=== PATIENT | male | born 1955 | race Caucasian/White ===

== ENCOUNTER 2024-12-15 11:23 | Inpatient (IN) | payer MEDICARE, OTHER ==
[~2024-12-15] VITALS: Ht 182.9 cm; Wt 64.4 kg
[2024-12-15 12:32] LABS: APPEARANCE,URINE CLEAR (CLEAR); BLOOD, URINE NEGATIVE Ery/uL (NEGATIVE); LEUKOCYTE ESTERASE ,URINE NEGATIVE (NEGATIVE); NITRITE, URINE NEGATIVE (NEGATIVE); UGLUCOSE NEGATIVE (NEGATIVE)
[2024-12-15 12:37] LABS: AMPHETAMINE, URINE NEGATIVE (NEGATIVE); BARBITURATE, URINE NEGATIVE (NEGATIVE); BENZODIAZEPINE, URINE NEGATIVE (NEGATIVE); CANNABINOID, URINE NEGATIVE (NEGATIVE); COCCAINE, URINE NEGATIVE (NEGATIVE); OPIATE, URINE NEGATIVE (NEGATIVE)
[2024-12-15 12:37] LABS: CALCIUM, SERUM 9.4 mg/dL (8.5-10.1); CREATININE 0.6 mg/dL (0.6-1.3); SODIUM SERUM 140 mmol/L (136-145); UREA NITROGEN, BLOOD 21 mg/dL (7-18)
[2024-12-15 12:43] LABS: PLATELET COUNT (AUTO) 410 K/uL (150-450); RED BLOOD CELL COUNT(AUTO) 4.74 MIL/uL (4.5-6.0); RED CELL DISTRIBUTION WIDTH 15.8 % (11.5-15.0); WHITE BLOOD COUNT (AUTO) 8.3 K/uL (4.3-11.0)
[2024-12-15 12:45] LABS: ALCOHOL, BLOOD < 3 mg/dL (0-10); ASPARTATE AMINOTRANSFERASE 18 U/L (15-37); TOTAL PROTEIN, SERUM 8.5 g/dL (6.4-8.2)
[2024-12-15 12:49] LABS: ADD URINE CULTURE NO; SQUAMOUS EPITHELIAL CELL,UR Rare /HPF (None Seen)
[2024-12-15] MEDS ORDERED: OLAN10TA3 PO (13:14)
[2024-12-15] MEDS ORDERED: OLAN15TA3 PO (13:14)
[2024-12-15] MEDS ORDERED: GABA300C PO (13:14)
[2024-12-15] MEDS ORDERED: MELO15TA13 PO (13:14)
[2024-12-15] MEDS ORDERED: ROSU10TA2 PO (13:14)
[2024-12-15] MEDS ORDERED: DICL100G26 TP (13:14)
[2024-12-15] MEDS ORDERED: LIDO30AD10 TP (13:14)
[2024-12-15] MEDS ORDERED: LOSA25TA27 PO (13:14)
[2024-12-15 15:15] VITALS: O2SAT 96
[2024-12-15] MEDS ORDERED: ZOLPIDEM TARTRATE 5 MG TABLET PO PRN ×2 (17:00)
[2024-12-15] MEDS ORDERED: MAG HYDROX/AL HYDROX/SIMETH 30 ML UDC PO PRN (17:00)
[2024-12-15] MEDS ORDERED: ACETAMINOPHEN 325 MG TABLET PO PRN (17:00)
[2024-12-15] MEDS ORDERED: MAGNESIUM HYDROXIDE 30 ML UDC PO PRN (17:00)
[2024-12-15] MEDS ORDERED: LORAZEPAM 1 MG TABLET PO PRN (17:00)
[2024-12-15] MEDS ORDERED: LORAZEPAM 0.5 MG TABLET PO PRN (17:00)
[2024-12-15] MEDS: BLOOD SUGAR DIAGNOSTIC 1 EACH STRIP IN ONE (17:50)
[2024-12-15 19:51] VITALS: BP 98/61; TEMP 97.9; O2SAT 95
[2024-12-16] MEDS: GABAPENTIN 300 MG CAPSULE PO SCH (12:25)
[2024-12-16] MEDS: OLANZAPINE 5 MG TABLET PO SCH (16:15)
[2024-12-16] MEDS: ATORVASTATIN 40 MG TABLET PO SCH (21:24)
[2024-12-17] MEDS: LOSARTAN POTASSIUM 25 MG TABLET PO SCH (09:00)
[2024-12-17] MEDS: LIDOCAINE 5% (PATCH) 1 EA PATCH TP SCH (09:00)
[2024-12-17] MEDS: DULOXETINE HCL 30 MG CAPSULE.DR PO SCH (09:00)
[2024-12-18] MEDS: DULOXETINE HCL 30 MG CAPSULE.DR PO ONE (11:13)
[2024-12-18] MEDS: OLANZAPINE 5 MG TABLET PO ONE (11:13)
[2024-12-19 08:53] VITALS: BP 101/73
[2024-12-19 22:18] VITALS: BP 123/74; TEMP 98; O2SAT 98
[2024-12-19 22:20] VITALS: BP 123/74; TEMP 98
[2024-12-20 23:00] VITALS: BP 120/70; TEMP 98.2; O2SAT 98
[2024-12-23] MEDS: RISPERIDONE 1 MG TAB.RAPDIS PO SCH (16:23)
[2024-12-23] MEDS: OLANZAPINE 10 MG VIAL IM PRN (16:48)
[2024-12-24] MEDS: ENSURE ENLIVE 237 ML LIQUID (VANILLA) PO SCH (08:36)
[2024-12-25] MEDS: OLANZAPINE 10 MG VIAL IM PRN (10:07)
[2024-12-25] MEDS: RISPERIDONE 1 MG TAB.RAPDIS PO SCH (12:22)
[2024-12-25 22:56] VITALS: BP 119/68; TEMP 98.2
[2024-12-27 16:00] VITALS: BP 107/89; TEMP 98.4; O2SAT 94
[2024-12-27 20:45] VITALS: BP 110/75; TEMP 98; O2SAT 98
[2024-12-29] MEDS: PALIPERIDONE PALMITATE 234 MG/1.5 ML SYRINGE IM ONE (10:33)
[2024-12-29 16:00] VITALS: BP 102/68; TEMP 98.1; O2SAT 100
[2024-12-29 16:05] LABS: PLATELET COUNT (AUTO) 359 K/uL (150-450); RED BLOOD CELL COUNT(AUTO) 4.17 MIL/uL (4.5-6.0); RED CELL DISTRIBUTION WIDTH 15.7 % (11.5-15.0); WHITE BLOOD COUNT (AUTO) 5.8 K/uL (4.3-11.0)
[2024-12-29 16:33] LABS: CALCIUM, SERUM 9.0 mg/dL (8.5-10.1); CREATININE 0.7 mg/dL (0.6-1.3); SODIUM SERUM 138.0 mmol/L (136-145); UREA NITROGEN, BLOOD 22.0 mg/dL (7-18)
[2024-12-29 19:59] VITALS: BP 130/84; TEMP 98; O2SAT 99
[2024-12-30 08:00] VITALS: BP 122/90; TEMP 97.8; O2SAT 94
[2024-12-31 19:59] VITALS: BP 123/74; TEMP 98; O2SAT 98
[2025-01-06] MEDS ORDERED: PALIPERIDONE PALMITATE 156 MG/ML SYRINGE IM SCH (09:00)
[2025-02-05] MEDS ORDERED: PALIPERIDONE PALMITATE 156 MG/ML SYRINGE IM SCH (09:00)
== END 2025-01-01 13:28 | DRG 885 ==
LOC: ER 11:28 → GPS 15:59
PROVIDERS: ADMIT Psychiatry & Neurology Psychiatry; ATTEND Internal Medicine
DX: F25.1 Schizoaffective disorder, depressive type (principal); Z68.1 Body mass index [BMI] 19.9 or less, adult; E44.1 Mild protein-calorie malnutrition; I48.91 Unspecified atrial fibrillation; J44.9 Chronic obstructive pulmonary disease, unspecified; E11.9 Type 2 diabetes mellitus without complications; E78.5 Hyperlipidemia, unspecified; I10 Essential (primary) hypertension; Z20.822 Contact with and (suspected) exposure to COVID-19; R62.7 Adult failure to thrive; Z73.6 Limitation of activities due to disability
CPT/HCPCS: 36415; 80048-TC; 80076-TC; 81001; 85025-TC; G0480; J2426; J3490